=== PATIENT | male | born 1990 | race Caucasian/White ===

== ENCOUNTER 2016-09-09 06:49 | Day surgery (SDC) | payer BC ==
[~2016-09-09 06:49] MED LIST: Lactated Ringers 1,000 ML IV SCH; Lidocaine 1%/Sod Bicarbonate in NS 8.4% 1 ML Syringe IV PRN; Sodium Chloride 0.9% 10 ML Syringe FLUSH PRN
--- NOTE | 2016-09-09 07:19 | PCM.PREANE ---
Preanesthetic Assessment - Anesthesia/Transfusion/Family Hx Anesthesia History: Prior Anesthesia Without Reaction Family History of Anesthesia Reaction: No Transfusion History: Unknown - Review of Systems General: No Symptoms, Other (quick smokeless tobacco 1 month ago) Pulmonary: No Symptoms Cardiovascular: No Symptoms Gastrointestinal: No symptoms Neurological: No Symptoms Other: Reports: None - Physical Assessment NPO Status Date: 09/08/16 NPO Status Time: 22:30 Pulse: 52 O2 Sat by Pulse Oximetry: 100 Respiratory Rate: 16 Blood Pressure: 118/64 Temperature: 36.3 C Vital Signs: Last Vital Signs Temp 36.3 C 09/09/16 06:55 Pulse 52 L 09/09/16 06:55 Resp 16 09/09/16 06:55 BP 118/64 09/09/16 06:55 Pulse Ox 100 09/09/16 06:55 Height: 1.73 m Weight: 75.296 kg ASA Class: 1 Mental Status: Alert & Oriented x3 Airway Class: Mallampati = 2 Dentition: Reports: Normal Dentition Thyro-Mental Finger Breadths: 3 Mouth Opening Finger Breadths: 3 ROM/Head Extension: Full Lungs: Clear to auscultation, Normal respiratory effort Cardiovascular: Regular Rate, Regular Rhythm - Allergies Allergies/Adverse Reactions: Allergies Allergy/AdvReac Type Severity Reaction Status Date / Time legumes Allergy Cannot Verified 09/08/16 16:01 Remember - Blood Blood Available: No Product(s) Available: None - Anesthesia Plan Pre-Op Medication Ordered: None - Acknowledgements Anesthesia Type Planned: General Anesthesia Pt an Appropriate Candidate for the Planned Anesthesia: Yes Alternatives and Risks of Anesthesia Discussed w Pt/Guardian: Yes Pt/Guardian Understands and Agrees with Anesthesia Plan: Yes PreAnesthesia Questionnaire HEENT History: Reports: Impaired Vision Cardiovascular History: Reports: None Respiratory History: Reports: None Gastrointestinal History: Reports: None Genitourinary History: Reports: None 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 [No Known Home Meds] 09/08/16 [History] - CURRENT (IN HOUSE) MEDS Current Meds: Current Medications Lactated Ringer's (Ringers, Lactated) 1,000 mls @ 125 mls/hr IV ASDIRECTED LILI Stop: 09/09/16 23:00 Last Admin: 09/09/16 07:10 Dose: 125 mls/hr Lidocaine/Sodium Bicarbonate (Buffered Lidocaine 1% In Ns 8.4%) 0.25 ml IV ONETIME PRN PRN Reason: Prior to IV Start Stop: 09/09/16 18:00 Last Admin: 09/09/16 07:10 Dose: 0.25 ml Sodium Chloride (Saline Flush) 10 ml FLUSH ASDIRECTED PRN PRN Reason: Keep Vein Open Stop: 09/09/16 18:00
[2016-09-09] MEDS ORDERED: Ondansetron 4 MG/2 ML SDV IVPUSH PRN (07:20)
[2016-09-09] MEDS ORDERED: Lidocaine 1% with EPINEPHrine 1:100,000 20 ML MDV ONE (07:25)
[2016-09-09] MEDS ORDERED: Bupivacaine 0.5%/EPINEPHrine 1:200,000 50 ML MDV ONE (07:25)
[2016-09-09] MEDS ORDERED: Ondansetron 4 MG/2 ML SDV ONE (07:33)
[2016-09-09] MEDS ORDERED: Propofol 200 MG/20 ML SDV ONE ×2 (07:33→08:10)
[2016-09-09] MEDS ORDERED: ceFAZolin 1 GM Vial ONE (07:33)
[2016-09-09] MEDS ORDERED: fentaNYL 250 MCG/5 ML SDV ONE (07:34)
[2016-09-09] MEDS ORDERED: Midazolam 1 MG/ML 2 ML SDV ONE (07:34)
[2016-09-09] MEDS ORDERED: HYDROmorphone 0.5 MG/0.5 ML Syringe IVPUSH PRN (08:30)
[2016-09-09] MEDS ORDERED: fentaNYL 100 MCG/2 ML SDV IVPUSH PRN (08:30)
--- NOTE | 2016-09-09 08:59 | PCM48HPAN ---
Post Anesthesia Note - EVALUATION WITHIN 48HRS OF ANESTHETIC Vital Signs in Normal Range: Yes Patient Participated in Evaluation: Yes Respiratory Function Stable: Yes Airway Patent: Yes Cardiovascular Function Stable: Yes Hydration Status Stable: Yes Pain Control Satisfactory: Yes Nausea and Vomiting Control Satisfactory: Yes Mental Status Recovered: Yes
[2016-09-09 09:04] VITALS: BP 103/49
--- NOTE | 2016-09-09 09:08 | PCM.OPNOTE ---
- General Post-Op/Procedure Note Date of Surgery/Procedure: 09/09/16 Operative Procedure(s): Excision pilonidal Findings: 4 cm, fistula, beginning at the 2:00 position extending towards the midline. The pilonidal tracts contain granulation tissue. There was no infection. Pre Op Diagnosis: Recurrent pilonidal Post-Op Diagnosis: Same Anesthesia Technique: Local, MAC, Moderate sedation Primary Surgeon: Yosi Givens EBKenn in mLs: 2 Complications: None Condition: Good Free Text/Narrative:: After prone positioning the patient's buttock was clipper prepped. The area was then prepped with Betadine and draped sterilely. Local analgesia was given. A malleable probe was inserted into the fistulous opening at 2 o'clock , and this exited through the secondary opening in the midline. This was about 4 cm in length. With the probe in place to used a 15 blade to cut through the skin and dermal tissues, down to the probe. There was granulation tissue within the tract , for which I used a curet to remove. I then took a 10 blade and excised the chronically scarred surrounding tissues. Hemostasis was obtained with cautery. I irrigated out the field. I closed the subcutaneous tissues with 3-0 Vicryl. The skin was closed with a 4-0 Monocryl. Steri-Strips and gauze were used for the dressing.
== END 2016-09-09 09:30 | disposition home or self-care (01) ==
LOC: JD.SDS 06:49
PROVIDERS: ATTEND Surgery
DX: L05.91 Pilonidal cyst without abscess (principal); Z91.018 Allergy to other foods; Z98.890 Other specified postprocedural states; Z78.9 Other specified health status; Z72.0 Tobacco use
CPT/HCPCS: 11770; J0690; J2250; J2405; J3010; J7120; 00300; J2704

== ENCOUNTER 2018-12-17 19:19 | Emergency (ER) | payer BC, OTHER ==
--- NOTE | 2018-12-17 19:45 | EDM.PDOC ---
ED HPI GENERAL MEDICAL PROBLEM - General Stated Complaint: NEED BLOOD WORK Time Seen by Provider: 12/17/18 19:26 Source of Information: Reports: Patient History Limitations: Reports: No Limitations - History of Present Illness INITIAL COMMENTS - FREE TEXT/NARRATIVE: Patient is a 28-year-old male who presents to the ED with concerns of not acting appropriate per family/girlfriend. Patient works with [employer] and has been working excessive hours and not getting enough sleep. They' re concerned about patient's mentation since there are moments when the patient seems to be confused. For instance yesterday patient ended up taking 3 showers yesterday because he did not recall the previous one. Family states patient has not been sleeping well at night. He appears excessively tired. He has passed out a few times at work working in the heat. They're concerned he does not drink enough fluids contributing to these current symptoms. They're seeking for the patient to receive labwork to ensure no electrolyte abnormalities secondary to dehydration. Per girlfriend patient and her were in [facility] on vacation and was supposed to be there over the weekend. Due to patient's abnormal behavior they came back early for further evaluation. Patient states he 's been under a lot more stress recently with employment plans for this fall and winter. In addition girlfriend is potentially being moved to [place] for work. Patient states he is really stressed about the situation and also living with his parents. Patient has no past medical history. Currently taking no medications. He does chew tobacco and denies any smoking history. Alcohol use is seldom. He denies any recreational drug use. - Related Data Allergies Allergy/AdvReac Type Severity Reaction Status Date / Time legumes Allergy Cannot Verified 12/17/18 22:50 Remember Home Meds: Home Meds . 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 ED EXAM, GENERAL - Physical Exam Exam: See Below Exam Limited By: No Limitations General Appearance: Alert, WD/WN, No Apparent Distress Eye Exam: Bilateral Eye: Normal Inspection, PERRL Ears: Hearing Grossly Normal Nose: Normal Inspection Throat/Mouth: Normal Inspection, Normal Oropharynx, Normal Voice, No Airway Compromise Head: Atraumatic, Normocephalic Neck: Normal Inspection, Supple Respiratory/Chest: No Respiratory Distress, Lungs Clear, Normal Breath Sounds, No Accessory Muscle Use, Chest Non-Tender Cardiovascular: Normal Peripheral Pulses, Regular Rate, Rhythm, No Murmur Peripheral Pulses: 2+: Radial (R) GI/Abdominal: Normal Bowel Sounds, Soft, Non-Tender, No Organomegaly, No Distention Back Exam: Normal Inspection Extremities: Normal Inspection Neurological: Alert, Oriented, CN II-XII Intact, Normal Cognition, No Motor/ Sensory Deficits Psychiatric: Normal Affect, Anxious Skin Exam: Warm, Dry, Intact, Normal Color Course - Vital Signs Last Recorded V/S: Last Vital Signs Temp 98.2 F 12/17/18 19:45 Pulse 81 12/17/18 19:45 Resp 20 12/17/18 19:45 BP 127/88 12/17/18 19:45 Pulse Ox 100 12/17/18 19:45 - Orders/Labs/Meds Labs: Laboratory Tests 12/17/18 12/17/18 12/17/18 Range/Units 14:54 19:54 20:05 WBC 6.12 (4.23-9.07) K/mm3 RBC 4.83 (4.63-6.08) M/mm3 Hgb 14.6 (13.7-17.5) gm/L Hct 40.8 (40.1-51.0) % MCV 84.5 (79.0-92.2) fl MCH 30.2 (25.7-32.2) pg MCHC 35.8 H (32.2-35.5) g/dl RDW Std Deviation 36.9 (35.1-43.9) fL Plt Count 234 (163-337) K/mm3 MPV 8.3 L (9.4-12.3) fl Neutrophils % (Manual) 39 L (40-60) % Band Neutrophils % 0 (0-10) % Lymphocytes % (Manual) 40 (20-40) % Atypical Lymphs % 3 % Monocytes % (Manual) 7 (2-10) % Eosinophils % (Manual) 11 H (0.8-7.0) % Basophils % (Manual) 0 L (0.2-1.2) Platelet Estimate Adequate RBC Morph Comment Normal Sodium (136-145) mEq/L Potassium (3.5-5.1) mEq/L Chloride (98-107) mEq/L Carbon Dioxide (21-32) mEq/L Anion Gap (5-15) BUN (7-18) mg/dL Creatinine (0.7-1.3) mg/dL Est Cr Clr Drug Dosing mL/min Estimated GFR (MDRD) (>60) mL/min BUN/Creatinine Ratio (14-18) Glucose (74-106) mg/dL Calcium (8.5-10.1) mg/dL Total Bilirubin (0.2-1.0) mg/dL AST (15-37) U/L ALT (16-63) U/L Alkaline Phosphatase (46-116) U/L Total Protein (6.4-8.2) g/dl Albumin (3.4-5.0) g/dl Globulin gm/dL Albumin/Globulin Ratio (1-2) TSH 3rd Generation (0.358-3.74) uIU/mL Urine Color Yellow (Yellow) Urine Appearance Clear (Clear) Urine pH 6.0 (5.0-8.0) Ur Specific [place] 1.025 (1.005-1.030) Urine Protein Negative (Negative) Urine Glucose (UA) Negative (Negative) Urine Ketones Negative (Negative) Urine Occult Blood Negative (Negative) Urine Nitrite Negative (Negative) Urine Bilirubin Negative (Negative) Urine Urobilinogen 0.2 (0.2-1.0) Ur Leukocyte Esterase Negative (Negative) Urine RBC 0-5 (0-5) /hpf Urine WBC 0-5 (0-5) /hpf Ur Squamous Epith Cells 0-5 (0-5) /hpf Urine Bacteria Few (FEW) /hpf Urine Mucus Few (FEW) /hpf Urine Opiates Screen Negative (ZGNKOX=527) Ur Buprenorphine Scrn Negative (CUTOFF=10) Ur Oxycodone Screen Negative (AIU6YF=215) Urine Methadone Screen Negative (RXE4LD=723) Ur Propoxyphene Screen Negative (CPZNFS=819) Ur Barbiturates Screen Negative (QZHKHH=085) Ur Tricyclics Screen Negative (TCOMBJ=558) Ur Phencyclidine Scrn Negative (CUTOFF=25) Ur Amphetamine Screen Presumptive positive H (CQIORJ=495) U Methamphetamines Scrn Negative (JQZXBZ=660) U Benzodiazepines Scrn Negative (CCVUXK=910) U Cocaine Metab Screen Negative (HOVMLA=261) U Marijuana (THC) Screen Presumptive positive H (CUTOFF=50) Ethyl Alcohol (0.00) gm% 12/17/18 Range/Units 20:05 WBC (4.23-9.07) K/mm3 RBC (4.63-6.08) M/mm3 Hgb (13.7-17.5) gm/L Hct (40.1-51.0) % MCV (79.0-92.2) fl MCH (25.7-32.2) pg MCHC (32.2-35.5) g/dl RDW Std Deviation (35.1-43.9) fL Plt Count (163-337) K/mm3 MPV (9.4-12.3) fl Neutrophils % (Manual) (40-60) % Band Neutrophils % (0-10) % Lymphocytes % (Manual) (20-40) % Atypical Lymphs % % Monocytes % (Manual) (2-10) % Eosinophils % (Manual) (0.8-7.0) % Basophils % (Manual) (0.2-1.2) Platelet Estimate RBC Morph Comment Sodium 139 (136-145) mEq/L Potassium 3.9 (3.5-5.1) mEq/L Chloride 102 (98-107) mEq/L Carbon Dioxide 28 (21-32) mEq/L Anion Gap 12.9 (5-15) BUN 21 H (7-18) mg/dL Creatinine 1.3 (0.7-1.3) mg/dL Est Cr Clr Drug Dosing 85.63 mL/min Estimated GFR (MDRD) > 60 (>60) mL/min BUN/Creatinine Ratio 16.2 (14-18) Glucose 91 (74-106) mg/dL Calcium 8.7 (8.5-10.1) mg/dL Total Bilirubin 1.0 (0.2-1.0) mg/dL AST 38 H (15-37) U/L ALT 35 (16-63) U/L Alkaline Phosphatase 79 (46-116) U/L Total Protein 6.5 (6.4-8.2) g/dl Albumin 3.8 (3.4-5.0) g/dl Globulin 2.7 gm/dL Albumin/Globulin Ratio 1.4 (1-2) TSH 3rd Generation 0.927 (0.358-3.74) uIU/mL Urine Color (Yellow) Urine Appearance (Clear) Urine pH (5.0-8.0) Ur Specific [place] (1.005-1.030) Urine Protein (Negative) Urine Glucose (UA) (Negative) Urine Ketones (Negative) Urine Occult Blood (Negative) Urine Nitrite (Negative) Urine Bilirubin (Negative) Urine Urobilinogen (0.2-1.0) Ur Leukocyte Esterase (Negative) Urine RBC (0-5) /hpf Urine WBC (0-5) /hpf Ur Squamous Epith Cells (0-5) /hpf Urine Bacteria (FEW) /hpf Urine Mucus (FEW) /hpf Urine Opiates Screen (NCVDZJ=465) Ur Buprenorphine Scrn (CUTOFF=10) Ur Oxycodone Screen (FNE2YZ=230) Urine Methadone Screen (YRT6YC=405) Ur Propoxyphene Screen (FTXHMA=323) Ur Barbiturates Screen (QXLXHG=491) Ur Tricyclics Screen (NBGHIS=871) Ur Phencyclidine Scrn (CUTOFF=25) Ur Amphetamine Screen (BMFIEZ=912) U Methamphetamines Scrn (IHFANQ=086) U Benzodiazepines Scrn (TDKJWQ=326) U Cocaine Metab Screen (NHNXHS=115) U Marijuana (THC) Screen (CUTOFF=50) Ethyl Alcohol 0.00 (0.00) gm% - Re-Assessments/Exams Free Text/Narrative Re-Assessment/Exam: On exam patient is alert and oriented 3. Vital signs are stable. He does not appear acute distress. Initial labs and studies will include: CBC, chem 14, TSH, UA to check for concentration of his urine, urine drug tox, and serum EtOH. CBC and chem 14 were essentially normal. TSH within normal limits. UA negative for infection specific gravity 1.025. Urine drug tox positive for amphetamines and marijuana. Serum EtOH 0.00. Patient admits to using amphetamines and marijuana. Discussed with the patient on ways to obtain counseling for drug addiction. Encouraged the patient return back to ED for any reason if he needs any help. Patient voices understanding and had no further questions or concerns. Departure - Departure Time of Disposition: 21:45 Disposition: Home, Self-Care 01 Condition: Good Clinical Impression: Amphetamine abuse, Marijuana abuse - Discharge Information Instructions: Stimulant Use Disorder-Amphetamines, Cannabis Use Disorder, Chemical Dependency, Substance Abuse Testing Referrals: [facility] [Outside] Gagandeep Hinojosa LAC [Licensed Counselor] - Forms: ED Department Discharge Additional Instructions: Please follow up with a drug counselor for further evaluation and treatment. Refrain from using any recreational drugs or alcohol. No driving today. Please return back to the ED for any new or worsening symptoms.
[2018-12-17 19:48] VITALS: BP 127/88
== END 2018-12-17 21:50 | disposition home or self-care (01) ==
LOC: JD.ED 19:19
DX: F15.10 Other stimulant abuse, uncomplicated (principal); F12.10 Cannabis abuse, uncomplicated; F17.220 Nicotine dependence, chewing tobacco, uncomplicated; Z91.018 Allergy to other foods
CPT/HCPCS: 36415; 80053; 80306; 81001; 84443; 85007; 85027; 99283; G0480